=== PATIENT | male | born 1950 | race African-American/Black ===

== ENCOUNTER 2019-01-28 10:41 | Inpatient (IN) | payer OTHER ==
[2019-01-28] VITALS (9 sets, daily range): BP systolic 130–156; BP diastolic 70–89
[~2019-01-28] VITALS: Ht 177.8 cm; Wt 74.8 kg
[~2019-01-28 10:41] MED LIST: AMLODIPINE BESY10 MG PO; ASA81BEC PO; CARDURA XL8 MG PO; GLIPIZIDE ER5 MG PO; LEVEMIR100 UNIT/1 SUBQ; METFORMIN HCL500 M3 PO; SIMVASTATIN40 MG PO; SPIRONOLACTONE25 MG PO; ZESTRIL40 MG PO
[2019-01-28 11:14] LABS: HEMATOCRIT 39.7 % (42.0-52.0); HEMOGLOBIN 13.3 gm/dL (14.0-18.0); MCH 28.9 pg (26.0-34.0); MCHC 33.4 g/dL (28.0-37.0); MCV 86.5 fL (80.0-100.0); MPV 8.9 fl. (7.2-11.1); RBC 4.59 mil/uL (4.50-6.00); RDW-CV 14.4 % (10.5-14.5); WBC 3.8 thou/uL (4.0-11.0)
[2019-01-28 11:21] LABS: CALCIUM 9.6 mg/dL (8.5-10.1); CREATININE 0.9 mg/dL (0.6-1.3); POTASSIUM 4.2 mmol/L (3.5-5.1)
[2019-01-28 11:24] LABS: APTT 26.4 Seconds (25.0-31.3); INR 1.1; PROTIME 11.4 Seconds (9.20-11.50)
--- NOTE | 2019-01-28 13:08 | EKG ---
[place] [address] ELECTROCARDIOGRAM REPORT Name: GERMAN SOLIS JR Room: [place] [address] ADM IN .R.#: [id number] Admission: 01/28/19 Attend Phys: Noemi Clifford Discharge: Date of : 54 Report #: [id number] THIS REPORT FOR: //name// [facility] Test Date: 2019-01-28 Test Time: 11:11:14 Pat Name: GERMAN SOLIS Department: Room: [place] [address] Gender: M Internet Marketing Executive: : 1950 Requested By: Berto Burciaga Order Number: [id number] Timoteo MD: Chilo Malave Measurements Intervals [place] Rate: 65 P: 32 NE: 173 QRS: -16 QRSD: 86 T: 55 QT: 407 QTc: 424 Interpretive Statements Sinus rhythm Borderline left axis deviation No previous ECG available for comparison Electronically Signed On 01-28-2019 13:08:27 CDT by Chilo Malave [email or web address] <ELECTRONICALLY SIGNED> By: Chilo Malave MD, [facility] 01/28/19 1308 1111 1111 Chilo Malave MD, FACC /EPI
[2019-01-29] VITALS (9 sets, daily range): BP systolic 141–153; BP diastolic 76–81
[2019-01-29 05:05] LABS: HEMATOCRIT 32.5 % (42.0-52.0); MCH 28.9 pg (26.0-34.0); MCHC 33.6 g/dL (28.0-37.0); MPV 8.8 fl. (7.2-11.1); RBC 3.77 mil/uL (4.50-6.00); RDW-CV 14.3 % (10.5-14.5); WBC 7.1 thou/uL (4.0-11.0)
[2019-01-29 05:17] LABS: HEMOGLOBIN 10.9 gm/dL (14.0-18.0)
[2019-01-29 06:09] LABS: CREATININE 0.8 mg/dL (0.6-1.3); POTASSIUM 4.5 mmol/L (3.5-5.1)
[2019-01-29] MEDS ORDERED: NORCO 5-325 TA1 EAC1 PO (09:09)
--- NOTE | 2019-01-29 13:08 | OP ---
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 PROCEDURE: 1. Left common femoral artery endarterectomy with patch angioplasty. 2. Left profunda femoris eversion endarterectomy. SURGEON: Berto Burciaga MD CUSTOMER SUPPORT CONSULTANT: Dr. Ceja, resident. COMPLICATIONS: None. ESTIMATED BLOOD LOSS: 300 mL. SPECIMEN: Includes plaque. ANESTHESIA: General. INDICATIONS FOR PROCEDURE: The patient is a very pleasant 68-year-old -[place] male who presents for elective femoral endarterectomy today. 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 We planned femoral endarterectomy today. Informed consent was obtained with risks including but not limited to bleeding, infection, need for further surgery, pain, , heart attack, stroke, and amputation. The patient understood these risks and was agreeable to proceed. DESCRIPTION OF PROCEDURE: The patient was taken to the OR and placed in supine position. After adequate general anesthesia was initiated and timeout was performed, the patient's left groin was prepped and draped in usual sterile fashion. A timeout was performed. I created a longitudinal incision in the patient's left groin. Sharp and blunt dissections were carried on the common femoral artery as well as the profunda femoris and superficial femoral arteries. These were all controlled. I created a longitudinal arteriotomy from the common femoral artery onto the superficial femoral [place] [address] OPERATIVE REPORT Name: GERMAN SOLIS JR Room: [address] IN [facility].#: [id number] Admission: 01/28/19 Attend Phys: Noemi Clifford Discharge: 01/29/19 Date of : 54 Report #: [id number] endarterectomy in standard fashion using a [place] elevator and a pair of pickups. I performed eversion endarterectomy of the profunda femoris. I tacked down the leading edge leading into the SFA. I had good backbleeding from both vessels. I patched my arteriotomy with a bovine pericardial patch and a running 5-0 Prolene suture. At the completion of the repair, there was adequate hemostasis and excellent blood flow into the profunda femoris and superficial femoral arteries. I corrected the heparin with protamine; irrigated the wound bed with antibiotic saline; controlled bleeding as needed with electrocautery, ties, clips, and Elizabeth; and closed the wound in multiple layers using 2-0 Vicryl, 3-0 Vicryl, and Stratafix for the skin. Incision was dressed with Dermabond. The patient tolerated the procedure well and was taken alert and awake to recovery room in good condition. All needle and instrument counts were correct. <ELECTRONICALLY SIGNED> By: Berto Burciaga MD 01/29/19 1308 1524 1540Berto Burciaga MD /naima
--- NOTE | 2019-01-30 18:06 | PATH ---
[address] [address] PATHOLOGY RPT PROCEDURE Name: GERMAN SERRANO JR Room: [address] IN ..#: [id number] Admission: 01/28/19 Date of : 54 Discharge: 01/29/19 Report #: [id number] Path Case #: [id number] [facility] Accession Number: [id number] . 01 Material submitted: . artery - PLAQUE LEFT FEMORAL ARTERY. Modifiers: left . 01 Clinical history: . Arthrosclerosis bilateral extremities . 02 Diagnosis: Plaque left femoral artery: - Fibrointimal atherosclerotic plaque with extensive calcification. ([facility]:pit; 01/30/2019) QTP 01/30/2019 1623 Local . 02 Electronically signed: . Pascual Vázquez MD, Pathologist NPI- [id number] . 01 Gross description: . The specimen is received in formalin, labeled "German Serrano JR, plaque left femoral artery", consists of multiple irregular fragments consistent with a previously opened, yellow-gaffney cylindrical segment measuring 3.6 x 3.0 x 0.76 cm. The wall is fibrotic and friable with the intima showing attached dark brown hemorrhagic/calcified material. Representatively submitted in A1 after decalcification. ([facility]; 01/29/2019) [facility] 01/30/2019 1622 Local . 02 Pathologist provided ICD-10: I70.202 . 02 CPT . 211407, 147169 Specimen Comment: A courtesy copy of this report has been sent to [phone] Specimen Comment: [phone], Specimen Comment: Report sent to ,DR MALIN / DR DIAZ Performed at: [address], [place], [place] [id number] MD Gee Sierra MD Phone: [phone] Performed at: [address] [address] [place] [id number] MD Pascual Vázquez MD Phone: [phone]
== END 2019-01-29 10:15 | disposition home or self-care (01) | DRG 253 ==
LOC: M.PRE → M.TBA 10:41 → M.ICU 10:41 → M.PRE 11:06 → M.ICU 16:54
PROVIDERS: Physician Assistant Surgical; Surgery Vascular Surgery; ADMIT Internal Medicine
PROC: 04CL0ZZ Extirpation of Matter from Left Femoral Artery, Open Approach (ICD-10-PCS; principal; 2019-01-28)
PROC: 04UL0KZ Supplement Left Femoral Artery with Nonautologous Tissue Substitute, Open Approach (ICD-10-PCS; principal; 2019-01-28)
DX: E11.51 Type 2 diabetes mellitus with diabetic peripheral angiopathy without gangrene (principal); D62 Acute posthemorrhagic anemia; I70.202 Unspecified atherosclerosis of native arteries of extremities, left leg; I10 Essential (primary) hypertension; E78.5 Hyperlipidemia, unspecified; E03.9 Hypothyroidism, unspecified; Z79.4 Long term (current) use of insulin